=== PATIENT | female | born 2000 | race Caucasian/White ===

== ENCOUNTER 2021-02-25 18:37 | Emergency (ER) | payer BC, OTHER, MEDICAID, SELFPAY ==
[2021-02-25 18:44] VITALS: BP 116/67; PULSE 71; RESP 18; TEMP 37.2; O2SAT 99
--- NOTE | 2021-02-25 19:26 | ED.GENADULT ---
HPI - General Adult General Chief complaint: Upper Respiratory Infection Stated complaint: sinus issues,ears clogged,cp Time Seen by Provider: 02/25/21 19:26 Source: patient Mode of arrival: ambulatory Limitations: no limitations History of Present Illness HPI narrative: 20-year-old female patient presents to the [facility] with complaints of sinus symptoms and sore throat. Patient states she is had symptoms now for about 6 days. Denies fever, body aches or chills but states that she has had sneezing, runny nose, congestion, sore throat and feeling like her head is stuffed up. Patient states her ears feel slightly clogged. Patient states she does take Zyrtec daily and is also tried [id number] NyQuil. Patient denies or breast-feeding at this time. Patient states she has not received any Covid vaccines. Related Data Home Medications Medication Instructions Recorded Confirmed cetirizine [Zyrtec] 10 mg PO DAILY 02/25/21 02/25/21 pantoprazole PO 02/25/21 sertraline mg 02/25/21 Allergies Allergy/AdvReac Type Severity Reaction Status Date / Time morphine Allergy Rash Verified 02/25/21 18:58 Review of Systems Review of Systems: Narrative: CONSTITUTIONAL: Denies fever, chills, or sweats. EYES: Denies visual changes, redness, or discharge. ENT: Positive rhinorrhea, congestion, sore throat, or otalgia. CARDIOVASCULAR: Denies chest pain, palpitations, or edema. RESPIRATORY: Positive mild nonproductive cough, denies dyspnea. GASTROINTESTINAL: Denies abdominal pain, nausea, vomiting, or diarrhea. GENITOURINARY: Denies dysuria or hematuria. SKIN: Denies rash or itching. MUSCULOSKELETAL: Denies back pain, joint pain, or myalgia. NEUROLOGIC: Positive headache, denies numbness, or weakness. PSYCHIATRIC: Denies anxiety or depression. [facility] Past Medical History Medical History (Updated 02/25/21 @ 19:37 by CESARIO Rios) Asthma Bronchitis Depression Social History Social History (Updated 02/25/21 @ 19:27 by CESARIO Rios) Smoking status: Current every day smoker Comments At the time of my signature I agree with nursing past medical history, surgical, social, and family history. There is no relevant family history pertinent to the presenting complaint. Exam Narrative: Exam Narrative: GENERAL: Well-appearing, well-nourished, and in no acute distress. HEAD: Normocephalic, atraumatic. No tenderness noted to frontal maxillary sinuses on palpation EYES: PERRLA and EOMI. ENT: Nares with erythema and edema noted bilaterally, no rhinorrhea or epistaxis. Mucous membranes moist. Posterior pharynx with no erythema, tonsillar Mely, exudates or lesions present. There is fluid noted behind bilateral ears but no erythema or bulging present. NECK: Supple. No lymphadenopathy CHEST: Clear to auscultation. No respiratory distress. Patient able talk in clear complete sentences. HEART: Regular rate and rhythm. No murmur heard. Normal peripheral pulses. ABDOMEN: Soft, nontender, nondistended, normal active bowel sounds. EXTREMITIES: Normal range of motion. No edema. SKIN: Warm, dry, no rash. NEURO: No focal deficits. Alert and oriented x3. Course Reevaluation(s) Reevaluation #1: Reevaluated patient notified her that her rapid test Covid tested today is negative that we will send off a PCR. Discussed with her about the [id number] prescription for amoxicillin in case her symptoms worsen. Discussed with her she does not develop any pain into the ears or worsening symptoms she does not need to get the antibiotic filled. Patient verbalized understanding of the [id number] prescription as well as the other medications and denies any other questions or concerns at this time. Date: 02/25/21 Time: 20:05 Vital Signs Vital signs: Vital Signs Temperature 37.2 C 02/25/21 18:44 Pulse Rate 71 02/25/21 18:44 Respiratory Rate 18 02/25/21 18:44 Blood Pressure 116/67 02/25/21 18:44 Pulse Oximetry 99 0
[2021-02-27 17:12] LABS: SARS-CoV-2 RNA PCR Negative
== END 2021-02-25 20:16 | disposition home or self-care (01) ==
PROVIDERS: Emergency Provider Nurse Practitioner Family
DX: H73.893 Other specified disorders of tympanic membrane, bilateral (principal); J32.9 Chronic sinusitis, unspecified; Z20.822 Contact with and (suspected) exposure to COVID-19; J45.909 Unspecified asthma, uncomplicated
CPT/HCPCS: 87081; 87426; 87880; 99203; C9803; G0463; U0003; U0005

== ENCOUNTER 2021-03-21 14:08 | Emergency (ER) | payer BC, OTHER, MEDICAID, SELFPAY ==
--- NOTE | ~2021-03-21 | XR_ITS ---
EXAMINATION: XR wrist RT min 3V DATE: 03/21/2021 14:34 INDICATION: Medial right wrist injury post twisting injury TECHNIQUE: Posteroanterior, ulnar deviation, oblique, and lateral views of the right wrist were obtai tiff. COMPARISON: none FINDINGS: Alignment is normal. No fracture. Joint spaces are normal. Soft tissues are unremarkable. IMPRESSION: 1. Negative right wrist radiographs. Reviewed, dictated and finalized at location A.
[2021-03-21 14:20] VITALS: BP 105/68; PULSE 81; RESP 16; TEMP 37.1; O2SAT 100
--- NOTE | 2021-03-21 14:48 | ED.GENADULT ---
HPI - General Adult General Chief complaint: Extremity Injury, Upper Stated complaint: Possible injury to right Wrist Time Seen by Provider: 03/21/21 14:48 Source: patient and RN notes reviewed Mode of arrival: ambulatory Limitations: no limitations History of Present Illness HPI narrative: 20-year-old female presents with complaints of right wrist pain for 1 day. ?Jo Ann reports carrying a heavy dryer on 03/20/21 and now has increasing RT wrist pain. ?No treatment. 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 ?No numbness or tingling. ?No radiating pain. ?No swelling. ?No immobility, suspected foreign body, or abuse. ?Exacerbating factors consist of certain movements. ?No relieving factors. The dominant hand is the Right hand. ?LMP over a year ago due to Depo Provera injection, due February 042020 did not get it. Remains active. ?The patient reports she has not been diagnosed with COVID-19. ?The patient reports she is not waiting for the results of a COVID-19 lab test. ?The patient reports she does not have fever, chills, weakness, fatigue, or myalgia. ?The patient reports he does not have a new or worsening cough or shortness of breath. The patient reports he does not have any rhinorrhea, congestion, loss of taste or smell, sore throat, and diarrhea. Denies recent traveling. Denies concerns for COVID-19 or exposures. At this time, the patient is not suspected of having COVID-19. Some parts of this dictation were generated by voice recognition software and may contain typographical and/or grammatical inaccuracies. Related Data Home Medications Medication Instructions Recorded Confirmed cetirizine [Zyrtec] 10 mg PO DAILY 02/25/21 02/25/21 pantoprazole PO 02/25/21 sertraline mg 02/25/21 Allergies Allergy/AdvReac Type Severity Reaction Status Date / Time morphine Allergy Rash Verified 02/25/21 18:58 Review of Systems Review of Systems: Narrative: CONSTITUTIONAL: Denies fever, chills, sweats. EYES: Denies visual changes, redness, discharge. ENT: Denies rhinorrhea, congestion, sore throat, otalgia. CARDIOVASCULAR: Denies chest pain, palpitations, edema. RESPIRATORY: Denies dyspnea, wheezing, cough. GASTROINTESTINAL: Denies abdominal pain, nausea, vomiting, diarrhea. SKIN: Denies rash or itching. MUSCULOSKELETAL: Denies acute back pain or myalgia. Complains of right wrist pain. NEUROLOGIC: Denies numbness or focal weakness. PSYCHIATRIC: Denies anxiety or depression. All other systems reviewed & are unremarkable except as noted in HPI and below. [facility] Past Medical History Medical History Asthma Bronchitis Depression Gastritis Smoker Surgical History Surgical History (Updated 03/21/21 @ 15:39 by CESARIO Helton) H/O laparoscopy RT ovary had to be fixed per Jo Ann History of esophagogastroduodenoscopy (EGD) Family History Family History (Updated 03/21/21 @ 15:37 by CESARIO Helton) Father , Heart problems Heart disease Mother Alive and well Social History Social History (Updated 03/21/21 @ 15:38 by CESARIO Helton) Years smoked: 4 Smoking status: Current every day smoker Tobacco type: cigarettes Second hand tobacco smoke exposure: No Alcohol intake: current Substance use: never Substance use type: does not use Living arrangements: with family Occupation/Education: occupation Gender identity (if verbalized by the patient): Female Comments At time of signature, agree with the nurse past medical, surgical, social, and family history. There is no relevant family history pertinent to the presenting complaint. Exam Narrative: Exam Narrative: GENERAL: This is a well-nourished, well-developed patient, in no apparent distress. Speaking in full sentences and ambulates with steady gait without dyspnea. HEAD: Normocephalic, atraumatic. EYES: PERRL. Sclera clear/white. Vision is grossly intact. NECK: Neck supple, non-t
== END 2021-03-21 15:16 | disposition home or self-care (01) ==
PROVIDERS: Emergency Provider Nurse Practitioner Family
DX: S63.501A Unspecified sprain of right wrist, initial encounter (principal); X50.0XXA Overexertion from strenuous movement or load, initial encounter; F17.210 Nicotine dependence, cigarettes, uncomplicated; J45.909 Unspecified asthma, uncomplicated
CPT/HCPCS: 73110; 99213; G0463

== ENCOUNTER 2022-09-28 10:42 | Emergency (ER) | payer OTHER, MEDICAID, SELFPAY ==
[2022-09-28 10:50] VITALS: BP 127/73; PULSE 78; RESP 16; TEMP 36.8; O2SAT 100
--- NOTE | 2022-09-28 11:02 | ED.GENADULT ---
HPI - General Adult General Chief complaint: [employer] Stated complaint: WANTS A TEST Time Seen by Provider: 09/28/22 11:02 Source: patient Mode of arrival: ambulatory Limitations: no limitations History of Present Illness HPI narrative: 22-year-old female patient presents to the [facility] with request for a test. Patient states that she did take an at-home test which was positive. Patient states she want to come in to get it a doctor's test . patient states the last period was August 27. Patient is 2 pr is 0. Patient denies any complaints such as nausea, vomiting, diarrhea, abdominal pain, fevers, body aches or chills. Denies any pain with urination. Denies any vaginal bleeding. Related Data Home Medications Medication Instructions Recorded Confirmed cetirizine 10 mg capsule (Zyrtec) 10 mg PO DAILY 02/25/21 09/28/22 pantoprazole 40 mg tablet,delayed 40 mg PO DAILY 02/25/21 09/28/22 release sertraline 25 mg tablet 25 mg PO DAILY 02/25/21 09/28/22 Allergies Allergy/AdvReac Type Severity Reaction Status Date / Time morphine Allergy Rash Verified 09/28/22 10:53 Review of Systems Review of Systems: CONSTITUTIONAL: Denies fever, chills, or sweats. EYES: Denies visual changes, redness, or discharge. ENT: Denies rhinorrhea, congestion, sore throat, or otalgia. CARDIOVASCULAR: Denies chest pain, palpitations, or edema. RESPIRATORY: Denies cough or dyspnea. GASTROINTESTINAL: Denies abdominal pain, nausea, vomiting, or diarrhea. GENITOURINARY: Denies dysuria or hematuria. SKIN: Denies rash or itching. MUSCULOSKELETAL: Denies back pain, joint pain, or myalgia. NEUROLOGIC: Denies headache, numbness, or weakness. PSYCHIATRIC: Denies anxiety or depression. [facility] Past Medical History Medical History Asthma Bronchitis Depression Gastritis Smoker Surgical History Surgical History H/O laparoscopy RT ovary had to be fixed per Jo Ann History of esophagogastroduodenoscopy (EGD) Family History Family History Father , Heart problems Heart disease Mother Alive and well Social History Social History Years smoked: 4 Smoking status: Current every day smoker Tobacco type: cigarettes Second hand tobacco smoke exposure: No Alcohol intake: current Substance use: never Substance use type: does not use Living arrangements: with family Occupation/Education: occupation Gender identity (if verbalized by the patient): Female Comments At the time of my signature I agree with nursing past medical history, surgical, social, and family history. There is no relevant family history pertinent to the presenting complaint. Exam Narrative: GENERAL: Well-appearing, well-nourished, and in no acute distress. HEAD: Normocephalic, atraumatic. EYES: PERRLA and EOMI. ENT: Nares clear, no rhinorrhea or epistaxis. Mucous membranes moist. NECK: Supple. No lymphadenopathy CHEST: Clear to auscultation. No respiratory distress. HEART: Regular rate and rhythm. No murmur heard. Normal peripheral pulses. ABDOMEN: Soft, nontender, nondistended, normal active bowel sounds. EXTREMITIES: Normal range of motion. No edema. SKIN: Warm, dry, no rash. NEURO: No focal deficits. Alert and oriented x3. Course Course Level of Care: Express Care Visit Vital Signs Vital signs: Vital Signs Temperature 36.8 C 09/28/22 10:50 Pulse Rate 78 09/28/22 10:50 Respiratory Rate 16 09/28/22 10:50 Blood Pressure 127/73 09/28/22 10:50 Pulse Oximetry 100 09/28/22 10:50 Temperature 36.8 C 09/28/22 10:50 Pulse Rate 78 09/28/22 10:50 Respiratory Rate 16 09/28/22 10:50 Blood Pressure 127/73 09/28/22 10:50 Pulse Oximetry 100 09/28/22 10:50 vital signs reviewed Medical D
== END 2022-09-28 11:15 | disposition home or self-care (01) ==
PROVIDERS: Emergency Provider Nurse Practitioner Family
DX: Z32.01 Encounter for pregnancy test, result positive (principal); O99.519 Diseases of the respiratory system complicating pregnancy, unspecified trimester; J45.909 Unspecified asthma, uncomplicated; O99.330 Smoking (tobacco) complicating pregnancy, unspecified trimester; F17.210 Nicotine dependence, cigarettes, uncomplicated; Z3A.00 Weeks of gestation of pregnancy not specified; O99.340 Other mental disorders complicating pregnancy, unspecified trimester; F32.A Depression, unspecified
CPT/HCPCS: 81003; 81025; 99213; G0463

== ENCOUNTER 2022-11-06 21:05 | Emergency (ER) | payer OTHER, MEDICAID, SELFPAY ==
[2022-11-06 21:09] VITALS: BP 128/68; PULSE 93; RESP 16; TEMP 36.3; O2SAT 100
[2022-11-06 21:21] LABS: Basophils Percent Auto 0.2 % (0.2-1.2); Eosinophils Absolute Auto 0.1 K/mm3 (0-0.3); Eosinophils Percent Auto 0.8 % (0-4.4); Hematocrit 34.5 % (37.0-47.0); Hemoglobin 11.7 g/dL (12.0-15.0); Immature Granulocyte Absolute 0.08 K/mm3 (0.00-0.031); Immature Granulocyte Percent A 0.6 % (0-0.5); Lymphocytes Absolute Auto 3.02 K/mm3 (0.9-3.2); Lymphocytes Percent Auto 23.8 % (18.3-44.2); Mean Corpuscular HGB Conc 33.9 g/dl (32-36); Mean Corpuscular Volume 85.6 fl (80-100); Mean Platelet Volume 10.1 fl (7.4-10.4); Monocytes Absolute Auto 0.9 K/mm3 (0.1-0.6); Monocytes Percent Auto 6.9 % (2.6-8.5); Neutrophils Absolute Auto 8.6 K/mm3 (1.3-6.7); Neutrophils Percent Auto 67.7 % (45.5-73.1); Platelet Count Result 207 k/mm3 (150-375); Red Blood Count 4.03 M/mm3 (4.2-5.4); Red Cell Distribution Width 12.4 % (11.5-14.5); White Blood Count 12.7 K/mm3 (4.5-10.0)
[2022-11-06 21:30] LABS: Alanine Aminotransferase 19 U/L (6-35); Albumin Level 4.4 g/dL (3.5-5.1); Alkaline Phosphatase 57 U/L (38-126); Anion Gap 9 mmol/L (8-16); Aspartate Amino Transferase 25 U/L (14-36); Bilirubin,Total 0.3 mg/dL (0.2-1.3); Blood Urea Nitrogen 10 mg/dL (7-17); Calcium 8.9 mg/dL (8.4-10.2); Carbon Dioxide 23 mmol/L (22-30); Chloride 103 mmol/L (98-107); Estimated CRCL calculation 114 ml/min; Estimated Glomerular Filt Rate > 60; Glucose 115 mg/dL (65-110); Lipase 64 U/L (23-300); Potassium 3.9 mmol/L (3.4-5.0); Sodium 135 mmol/L (137-145)
[2022-11-06 21:58] LABS: Appearance Urine Cloudy (Clear); Bacteria Urine 3+ /hpf; Bilirubin Urine Negative (Negative); Blood Urine Negative (Negative); Color Urine Yellow (Yellow); Glucose Urine UA Negative (Negative); Ketones Urine Negative (Negative); Leukocyte Esterase Ur 2+ LEU/UL (Negative); Nitrate Urine Negative (Negative); Non Pathogenic Casts 0-2; Protein Urine Negative (Negative); RBC Urine 0-2 /hpf (0-2); Specific Grav Ur 1.019 (1.001-1.035); Squamous Epithelial Cell Urine Many /hpf (Few); WBC Urine 51-100 /hpf; pH Urine 6.5 (5.0-9.0)
[2022-11-06 22:08] LABS: Add Urine Microscopic? YES
--- NOTE | 2022-11-07 03:12 | ED.GENADULT ---
HPI - General Adult General Chief complaint: Abdominal Pain <NIMISHA Richardson Last Filed: 11/07/22 03:14> Stated complaint: Abd pain <NIMISHA Richardson Last Filed: 11/07/22 03:14> Time Seen by Provider: 11/07/22 03:23 <NIMISHA Richardson Last Filed: 11/07/22 03:14> History of Present Illness HPI narrative: 22-year-old female who is currently about 10 weeks here for evaluation of upper abdominal pain over the past several days. Reports nausea but no vomiting. Patient states the pain is described as a burning sensation, worse after meals. Additionally notes some chronic low back pain in her sacrum. No fevers, chills, dysuria. Does report some overflow incontinence. No incontinence or retention of bowel, saddle anesthesia. No trauma to the low back. <NIMISHA Richardson Last Filed: 11/07/22 03:14> Related Data Home medications: Home Medications Medication Instructions Recorded Confirmed famotidine 20 mg tablet 20 mg PO DAILY 11/03/22 11/03/22 promethazine 12.5 mg tablet 12.5 mg PO DIRECTED 11/03/22 11/03/22 <NIMISHA Richardson Last Filed: 11/07/22 03:14> Allergies/adverse reactions: Allergies Allergy/AdvReac Type Severity Reaction Status Date / Time morphine Allergy Rash Verified 11/03/22 16:33 <NIMISHA Richardson Last Filed: 11/07/22 03:14> Review of Systems Review of Systems: Gen.: Denies fevers or chills Eyes: Denies eye pain or visual change ENT: Denies congestion Respiratory: Denies shortness of breath or cough CV: Denies chest pain or palpitations GI: Reports upper abdominal pain denies burning, urgency, frequency or hematuria Musculoskeletal: Denies back pain or muscle pain Neuro: Denies numbness, tingling, weakness or focal weakness Skin: Denies rash Except as documented, all other systems reviewed and negative <NIMISHA Richardson Last Filed: 11/07/22 03:14> [facility] Past Medical History Medical History: Medical History Asthma Bronchitis Depression Gastritis Smoker <Emerita Chang PA-C - Last Filed: 11/07/22 03:14> Surgical History Surgical History: Surgical History H/O laparoscopy RT ovary had to be fixed per Jo Ann History of esophagogastroduodenoscopy (EGD) <Emerita Chang PA-C - Last Filed: 11/07/22 03:14> Family History Family History: Family History Father , Heart problems Heart disease Mother Alive and well <Emerita Chang PA-C - Last Filed: 11/07/22 03:14> Social History Social History: Social History Years smoked: 4 Smoking status: Current every day smoker Tobacco type: cigarettes Second hand tobacco smoke exposure: No Alcohol intake: current Substance use: never Substance use type: does not use Living arrangements: with family Occupation/Education: occupation Gender identity (if verbalized by the patient): Female <Emerita Chang PA-C - Last Filed: 11/07/22 03:14> Exam Narrative: APPEARANCE: Well appearing, no pain in distress, well-nourished. Head: Normocephalic and atraumatic. EYES: PERRLA/EOMI, conjunctivae clear NOSE: No nasal drainage EARS: External ear normal in appearance THROAT: Oropharynx is clear. Mucous membranes are moist. NECK: Supple. No adenopathy, no masses. RESPIRATORY: Airway patent, respirations nonlabored. Clear to auscultation bilaterally, no rales, rhonchi, wheezing. CARDIOVASCULAR: Regular rate and rhythm without murmurs, rubs, or gallops. ABDOMINAL: Normoactive bowel sounds. Soft, nontender, nondistended. No rebound tenderness or guarding. MUSCULOSKELETAL: Extremities are warm and well-perfused. Moves all extremities well. No edema. NEURO: Normal speech. N
[2022-11-07] MEDS: FAMOTIDINE 20 MG/2 ML VIAL IV PUSH (03:26)
[2022-11-07] MEDS: METOCLOPRAMIDE HCL INJ 10 MG/2 ML VIAL IV PUSH (03:26)
--- NOTE | 2022-11-07 05:00 | PC.NURSE ---
heart tones on pts twins confirmed via US by Dr. Webber before pt discharged.
[2022-11-07 05:19] VITALS: BP 122/72; PULSE 78; RESP 16; O2SAT 100
== END 2022-11-07 05:10 | disposition home or self-care (01) ==
PROVIDERS: Emergency Medicine; Emergency Provider Emergency Medicine
DX: O99.891 Other specified diseases and conditions complicating pregnancy (principal); K29.70 Gastritis, unspecified, without bleeding; O23.41 Unspecified infection of urinary tract in pregnancy, first trimester; N39.0 Urinary tract infection, site not specified; Z3A.10 10 weeks gestation of pregnancy; O99.331 Smoking (tobacco) complicating pregnancy, first trimester; F17.210 Nicotine dependence, cigarettes, uncomplicated
CPT/HCPCS: 36415; 80053; 81001; 83690; 85025; 87086; 96374; 96375; 99284; J2765

== ENCOUNTER 2023-01-02 15:18 | Emergency (ER) | payer OTHER, MEDICAID, SELFPAY ==
[2023-01-02 15:30] VITALS: BP 107/65; PULSE 84; RESP 16; TEMP 36.8; O2SAT 99
--- NOTE | 2023-01-02 15:30 | ED.URI ---
HPI - URI/Sore Throat General Chief Complaint: Upper Respiratory Infection Stated Complaint: headache,fever,nausea Time Seen by Provider: 01/02/23 15:30 Source: patient and RN notes reviewed Mode of arrival: ambulatory Limitations: no limitations History of Present Illness HPI Narrative: 22 y/o female presented for c/o nausea worsening since last night. She states she has been nauseated due to , which usually improves with prescribed Zofran. However the medication did not help the nausea today. Also reports feeling hot and has had sinus drainage and sneezing. States feet were swollen yesterday. Patient is 18weeks gestation, was seen by her OBgyn yesterday for ultrasound, was told normal heart tones were noted. She contacted them today, and was told if symptoms persist to go to the UC/ER. Patient also takes Zyrtec daily. Related Data Home Medications Medication Instructions Recorded Confirmed famotidine 20 mg tablet 20 mg PO DAILY 11/03/22 11/03/22 promethazine 12.5 mg tablet 12.5 mg PO DIRECTED 11/03/22 11/03/22 Allergies Allergy/AdvReac Type Severity Reaction Status Date / Time morphine Allergy Rash Verified 11/03/22 16:33 Review of Systems Review of Systems: CONSTITUTIONAL: Denies body aches, fever, chills ENT: Reports rhinorrhea, congestion CARDIOVASCULAR: Denies chest pain, palpitations, or edema. RESPIRATORY: Denies cough or dyspnea. GASTROINTESTINAL: Endorses nausea Denies abdominal pain, vomiting, diarrhea, hematochezia, melena GENITOURINARY: Denies vaginal bleeding, dysuria, hematuria, or CVA tenderness. SKIN: Denies rash, itching, or wounds. MUSCULOSKELETAL: Denies back pain, joint pain, or myalgia. NEUROLOGIC: Denies headache, numbness, tingling, or weakness. All systems reviewed & are unremarkable except as noted in HPI and below PMFSH Past Medical History Medical History Asthma Bronchitis Depression Gastritis Smoker Surgical History Surgical History H/O laparoscopy RT ovary had to be fixed per Jo Ann History of esophagogastroduodenoscopy (EGD) Family History Family History Father , Heart problems Heart disease Mother Alive and well Social History Social History Years smoked: 4 Smoking status: Current every day smoker Tobacco type: cigarettes Second hand tobacco smoke exposure: No Alcohol intake: current Substance use: never Substance use type: does not use Living arrangements: with family Occupation/Education: occupation Gender identity (if verbalized by the patient): Female Comments At time of signature, I have reviewed and agree with nursing past medical, surgical, social and family history unless otherwise noted. Please see nursing chart for further information. There is no relevant family history pertinent to the presenting complaint Exam Narrative: GENERAL: Well-appearing EYES: EOMI. Conjunctivae normal. ENT: Mucous membranes pink and moist. CHEST: Clear to auscultation. HEART: Regular rate and rhythm. No murmur appreciated. Normal peripheral pulses. ABDOMEN: Gravid; abd soft, nondistended, normal active bowel sounds. heart tones detected. EXTREMITIES: Normal range of motion. No edema. SKIN: Warm, dry, no rash. Capillary refill normal. Normal skin turgor. NEURO: No focal deficits. Alert and oriented x3. PSYCH: Flat affect. Course Course Emergency Course: Patient is aware of diagnosis, understands and agrees to treatment plan. Anticipatory guidance given. Patient agrees to follow-up as directed and is aware of reasons to seek care at the emergency department. Portions of this record may have been created with voice recognition software Level of Care: Express Care Visit Vital Signs Vital signs: Vital Signs Temper
--- NOTE | 2023-01-02 16:01 | PC.NURSE ---
1545 heart tones doppled-pt with twins-FHTs in right suprapubic 140/minute and near umbilicus FHTs 160/minute.
== END 2023-01-02 15:55 | disposition home or self-care (01) ==
PROVIDERS: Emergency Provider Nurse Practitioner Family
DX: O99.891 Other specified diseases and conditions complicating pregnancy (principal); Z3A.18 18 weeks gestation of pregnancy; R11.0 Nausea; O99.512 Diseases of the respiratory system complicating pregnancy, second trimester; J45.909 Unspecified asthma, uncomplicated; O99.332 Smoking (tobacco) complicating pregnancy, second trimester; F17.210 Nicotine dependence, cigarettes, uncomplicated; O99.342 Other mental disorders complicating pregnancy, second trimester; F32.A Depression, unspecified
CPT/HCPCS: 99212; G0463

== ENCOUNTER 2023-02-11 15:04 | Outpatient (CLI) | payer OTHER, MEDICAID, SELFPAY ==
[2023-02-11 15:53] VITALS: BP 100/45; PULSE 87
[2023-02-11 16:00] VITALS: BP 105/63; PULSE 97
[2023-02-11 16:20] VITALS: BP 100/45; PULSE 86
[2023-02-11 16:30] VITALS: BP 127/65; PULSE 103
[2023-02-11 16:40] LABS: Basophils Absolute Auto 0.1 K/mm3 (0.0-0.1); Basophils Percent Auto 0.3 % (0.2-1.2); Eosinophils Percent Auto 0.2 % (0-4.4); Hemoglobin 8.2 g/dL (12.0-15.0); Immature Granulocyte Absolute 0.55 K/mm3 (0.00-0.031); Immature Granulocyte Percent A 3.7 % (0-0.5); Lymphocytes Percent Auto 13.4 % (18.3-44.2); Mean Corpuscular HGB Conc 31.5 g/dl (32-36); Mean Corpuscular Hemoglobin 26.4 pg (26-34); Mean Corpuscular Volume 83.6 fl (80-100); Mean Platelet Volume 11.2 fl (7.4-10.4); Monocytes Absolute Auto 0.9 K/mm3 (0.1-0.6); Monocytes Percent Auto 5.8 % (2.6-8.5); Neutrophils Absolute Auto 11.4 K/mm3 (1.3-6.7); Neutrophils Percent Auto 76.6 % (45.5-73.1); Platelet Count Result 180 k/mm3 (150-375); Red Blood Count 3.11 M/mm3 (4.2-5.4); Red Cell Distribution Width 12.4 % (11.5-14.5); White Blood Count 14.9 K/mm3 (4.5-10.0)
[2023-02-11 16:42] LABS: Alanine Aminotransferase 17 U/L (6-35); Albumin Level 3.7 g/dL (3.5-5.1); Alkaline Phosphatase 85 U/L (38-126); Anion Gap 6 mmol/L (8-16); Aspartate Amino Transferase 24 U/L (14-36); Bilirubin,Total 0.2 mg/dL (0.2-1.3); Blood Urea Nitrogen 5 mg/dL (7-17); Calcium 8.7 mg/dL (8.4-10.2); Carbon Dioxide 22 mmol/L (22-30); Chloride 104 mmol/L (98-107); Estimated Glomerular Filt Rate > 60; Glucose 85 mg/dL (65-110); Potassium 3.7 mmol/L (3.4-5.0); Sodium 132 mmol/L (137-145); Uric Acid 2.6 mg/dL (2.5-7.5)
[2023-02-11 16:45] LABS: Creatinine Urine 126.4 mg/dL; Total Protein Urine Random 21 mg/dL; Ur Ttl Prot Creatinine Ratio 0.17 mg/mg (0-0.20)
[2023-02-11 21:10] LABS: Appearance Urine Cloudy (Clear); Bacteria Urine Rare /hpf; Bilirubin Urine Negative (Negative); Blood Urine Negative (Negative); Calcium Oxalate Crystals Urine Present /hpf; Color Urine Yellow (Yellow); Glucose Urine UA Negative (Negative); Ketones Urine Negative (Negative); Leukocyte Esterase Ur 2+ LEU/UL (NEGATIVE); Need Manual Microscopic Reviewed; Nitrate Urine Negative (Negative); Non Pathogenic Casts 0-2; Protein Urine Trace mg/dL (Negative); RBC Urine 0-2 /hpf (0-2); Specific Grav Ur 1.016 (1.001-1.035); Squamous Epithelial Cell Urine Few /hpf (Few)
[2023-02-11 21:11] LABS: Add Urine Microscopic? YES
== END 2023-02-11 16:30 | disposition home or self-care (01) ==
LOC: ANHOBPP 18:56 → ANHOBOP 02-13 08:41 → ANHOBPP 02-16 08:55
PROVIDERS: Visit Provider Obstetrics & Gynecology
DX: O13.9 Gestational [pregnancy-induced] hypertension without significant proteinuria, unspecified trimester (principal); Z3A.00 Weeks of gestation of pregnancy not specified
CPT/HCPCS: 36415; 59025; 80053; 81001; 82570; 84156; 84550; 85025; 87086; 99199

== ENCOUNTER 2023-04-22 00:17 | Outpatient (CLI) | payer OTHER, MEDICAID, SELFPAY ==
--- NOTE | 2023-04-22 01:22 | PC.NURSE ---
See [facility] for notes
== END 2023-04-22 01:30 | disposition home or self-care (01) ==
PROVIDERS: Visit Provider Obstetrics & Gynecology
DX: O42.90 Premature rupture of membranes, unspecified as to length of time between rupture and onset of labor, unspecified weeks of gestation (principal); Z3A.00 Weeks of gestation of pregnancy not specified
CPT/HCPCS: 59025